=== PATIENT | female | born 1950 | race African-American/Black ===

== ENCOUNTER 2016-06-06 22:59 | Inpatient (IN) | payer MEDICARE, MEDICAID ==
[~2016-06-06] VITALS: Ht 172.7 cm; Wt 76.2 kg
[2016-06-07 03:19] VITALS: BP 139/78
[2016-06-07] MEDS ORDERED: PNEUMOCOCCAL VACCINE POLYVALENT 0.5 ML VIAL [PPSV23] IM ONE (03:45)
[2016-06-07 06:37] LABS: GLUCOSE,POINT OF CARE 395 MG/DL (70-110)
[2016-06-07] MEDS ORDERED: INSULIN ASPART 100 UNITS/ML SQ PRN (07:00)
[2016-06-07] MEDS ORDERED: GLUCAGON,HUMAN RECOMBINANT 1 MG VIAL IM PRN (07:00)
[2016-06-07] MEDS: MetFORMIN HCL 500 MG TABLET PO SCH ×2 (07:10→16:17)
[2016-06-07] MEDS: INSULIN ASPART 100 UNITS/ML SQ PRN (07:19)
[2016-06-07 07:51] LABS: BASOPHILS % (AUTO) 0.4 % (0.0-2.0); EOSINOPHILS % (AUTO) 2.5 % (1.0-6.0); HEMOGLOBIN 9.7 g/dL (12.0-16.0); LYMPHOCYTES # (AUTO) 1.6 K/uL (1.0-4.8); MEAN CORPUSCULAR HEMOGLOBIN 27.7 pg (26.0-34.0); MEAN CORPUSCULAR HGB CONC 32.2 G/dL (31.0-37.0); MEAN CORPUSCULAR VOLUME 86 fL (80-100); MONOCYTES # (AUTO) 0.5 K/uL (0.1-1.0); MONOCYTES % (AUTO) 7.4 % (2.0-9.0); NEUTROPHILS # (AUTO) 4.3 K/uL (1.8-7.7); NEUTROPHILS % (AUTO) 65.7 % (40.0-70.0); PLATELET COUNT (AUTO) 264 K/uL (150-450); RED BLOOD CELL COUNT(AUTO) 3.49 MIL/uL (4.00-5.20); RED CELL DISTRIBUTION WIDTH 15.5 % (11.5-14.5); WHITE BLOOD COUNT (AUTO) 6.6 K/uL (4.5-11.0)
[2016-06-07 08:22] LABS: ALANINE AMINOTRANSFERASE 43 U/L (12-78); ALBUMIN 2.6 g/dL (3.4-5.0); ANION GAP 5 mmol/L (8-16); ASPARTATE AMINOTRANSFERASE 24 U/L (15-37); BILIRUBIN,TOTAL 0.2 mg/dL (0.1-1.0); CALCIUM, TOTAL 8.7 mg/dL (8.8-10.5); CARBON DIOXIDE 28 mmol/L (22-29); CHLORIDE 102 mmol/L (98-107); CREATININE 1.02 mg/dL (0.60-1.30); GLOMERULAR FILTR. RATE CALC > 60 mL/min (>60); SODIUM SERUM 135 mmol/L (136-145); THYROID STIMULATING HORMONE 2.75 uIU/mL (0.36-3.74); TOTAL PROTEIN, SERUM 6.2 g/dL (6.4-8.2); UREA NITROGEN, BLOOD 21 mg/dL (7-18)
[2016-06-07 08:23] VITALS: BP 120/73
[2016-06-07 08:25] LABS: HEMOGLOBIN A1C 9.9 % (4.5-6.2)
[2016-06-07] MEDS: LORazepam 2 MG TABLET PO PRN ×2 (08:39→14:22)
[2016-06-07] MEDS ORDERED: DiphenhydrAMINE HCL 50 MG/ML VIAL ONE (08:56)
[2016-06-07] MEDS ORDERED: HALOPERIDOL LACTATE 5 MG/ML VIAL ONE (08:56)
[2016-06-07] MEDS ORDERED: LORazepam 2 MG/ML VIAL ONE (08:56)
[2016-06-07] MEDS ORDERED: DiphenhydrAMINE HCL 50 MG/ML VIAL IM ONE (09:00)
[2016-06-07] MEDS ORDERED: LORazepam 2 MG/ML VIAL IM ONE (09:00)
[2016-06-07] MEDS ORDERED: HALOPERIDOL LACTATE 5 MG/ML VIAL IM ONE (09:00)
[2016-06-07 16:00] VITALS: BP 121/84
[2016-06-07] MEDS: DIVALPROEX SODIUM 500 MG DR TABLET PO SCH (16:16)
[2016-06-07] MEDS: RisperiDONE 1 MG TABLET PO SCH (16:17)
[2016-06-08] MEDS: MetFORMIN HCL 500 MG TABLET PO SCH ×2 (06:48→16:37)
[2016-06-08 06:55] LABS: GLUCOSE,POINT OF CARE 265 MG/DL (70-110)
[2016-06-08] MEDS: INSULIN ASPART 100 UNITS/ML SQ PRN ×2 (07:01→11:50)
[2016-06-08 08:00] VITALS: BP 159/90
[2016-06-08] MEDS: RisperiDONE 1 MG TABLET PO SCH ×2 (08:12→16:37)
[2016-06-08] MEDS: HALOPERIDOL 5 MG TABLET PO PRN (08:12)
[2016-06-08] MEDS: DIVALPROEX SODIUM 500 MG DR TABLET PO SCH ×2 (08:12→16:37)
[2016-06-08] MEDS: LORazepam 2 MG TABLET PO PRN ×2 (08:12→16:37)
[2016-06-08 10:07] LABS: GLUCOSE COMMENT 1 Received Meds; GLUCOSE,POINT OF CARE 214 MG/DL (70-110)
[2016-06-08 12:48] VITALS: BP 146/82
[2016-06-08] MEDS: AmLODIPine BESYLATE 5 MG TABLET PO SCH (13:53)
[2016-06-08 14:46] VITALS: BP 144/79
[2016-06-08 16:24] VITALS: BP 144/83
[2016-06-08] MEDS ORDERED: INSULIN ASPART 100 UNITS/ML SQ ONE (16:45)
[2016-06-08 16:57] LABS: GLUCOSE COMMENT 1 Received Meds; GLUCOSE,POINT OF CARE 404 MG/DL (70-110)
[2016-06-08 20:52] LABS: GLUCOSE,POINT OF CARE 136 MG/DL (70-110)
[2016-06-08] MEDS: INSULIN DETEMIR 100 UNITS/ML SQ SCH (21:18)
[2016-06-09] MEDS ORDERED: DiphenhydrAMINE HCL 50 MG/ML VIAL ONE (00:49)
[2016-06-09] MEDS ORDERED: HALOPERIDOL LACTATE 5 MG/ML VIAL ONE (00:49)
[2016-06-09] MEDS ORDERED: LORazepam 2 MG/ML VIAL ONE (00:49)
[2016-06-09] MEDS ORDERED: HALOPERIDOL LACTATE 5 MG/ML VIAL IM ONE (01:00)
[2016-06-09] MEDS ORDERED: DiphenhydrAMINE HCL 50 MG/ML VIAL IM ONE (01:00)
[2016-06-09] MEDS ORDERED: LORazepam 2 MG/ML VIAL IM ONE (01:00)
[2016-06-09 06:30] VITALS: BP 137/88
[2016-06-09] MEDS: MetFORMIN HCL 500 MG TABLET PO SCH ×2 (06:37→16:46)
[2016-06-09] MEDS: INSULIN ASPART 100 UNITS/ML SQ PRN ×4 (06:38→20:51)
[2016-06-09 08:14] VITALS: BP 137/70
[2016-06-09] MEDS: LORazepam 2 MG TABLET PO PRN ×2 (09:18→16:46)
[2016-06-09] MEDS: RisperiDONE 1 MG TABLET PO SCH ×2 (09:18→16:46)
[2016-06-09] MEDS: AmLODIPine BESYLATE 5 MG TABLET PO SCH (09:18)
[2016-06-09] MEDS: HALOPERIDOL 5 MG TABLET PO PRN (09:18)
[2016-06-09] MEDS: DIVALPROEX SODIUM 500 MG DR TABLET PO SCH ×2 (09:18→16:46)
[2016-06-09 12:12] LABS: GLUCOSE,POINT OF CARE 366 MG/DL (70-110)
[2016-06-09 12:12] LABS: GLUCOSE COMMENT 1 Received Meds; GLUCOSE,POINT OF CARE 309 MG/DL (70-110)
[2016-06-09] MEDS: LOPERAMIDE HCL 2 MG CAPSULE PO PRN (14:57)
[2016-06-09 16:01] VITALS: BP 140/78
[2016-06-09 17:03] LABS: GLUCOSE,POINT OF CARE 178 MG/DL (70-110)
[2016-06-09] MEDS: INSULIN DETEMIR 100 UNITS/ML SQ SCH (20:50)
[2016-06-10] MEDS: MetFORMIN HCL 500 MG TABLET PO SCH ×2 (06:34→17:09)
[2016-06-10] MEDS: INSULIN ASPART 100 UNITS/ML SQ PRN ×4 (06:36→21:31)
[2016-06-10] MEDS: LOPERAMIDE HCL 2 MG CAPSULE PO PRN (06:40)
[2016-06-10 07:38] LABS: GLUCOSE,POINT OF CARE 262 MG/DL (70-110)
[2016-06-10 07:38] LABS: GLUCOSE COMMENT 1 Received Meds; GLUCOSE,POINT OF CARE 215 MG/DL (70-110)
[2016-06-10] MEDS: RisperiDONE 1 MG TABLET PO SCH ×2 (08:48→17:09)
[2016-06-10] MEDS: AmLODIPine BESYLATE 5 MG TABLET PO SCH (08:48)
[2016-06-10] MEDS: DIVALPROEX SODIUM 500 MG DR TABLET PO SCH ×2 (08:49→17:08)
[2016-06-10] MEDS: LORazepam 2 MG TABLET PO PRN ×3 (08:55→18:43)
[2016-06-10] MEDS: LACTOBACILLUS ACIDOPHILUS/BULGARICUS GRANULES PACKET PO SCH ×2 (12:46→17:08)
[2016-06-10 16:22] VITALS: BP 120/74
[2016-06-10 19:39] LABS: GLUCOSE,POINT OF CARE 322 MG/DL (70-110)
[2016-06-10 19:39] LABS: GLUCOSE,POINT OF CARE 330 MG/DL (70-110)
[2016-06-10 20:27] LABS: GLUCOSE,POINT OF CARE 193 MG/DL (70-110)
[2016-06-10] MEDS: INSULIN DETEMIR 100 UNITS/ML SQ SCH (21:30)
[2016-06-10] MEDS: ZOLPIDEM TARTRATE 10 MG TABLET PO PRN (22:10)
[2016-06-11] MEDS: MetFORMIN HCL 500 MG TABLET PO SCH ×2 (06:43→16:13)
[2016-06-11] MEDS: INSULIN ASPART 100 UNITS/ML SQ PRN ×4 (06:44→20:40)
[2016-06-11 07:04] LABS: GLUCOSE,POINT OF CARE 145 MG/DL (70-110)
[2016-06-11 07:12] VITALS: BP 123/79
[2016-06-11 08:30] VITALS: BP 121/68
[2016-06-11] MEDS: DIVALPROEX SODIUM 500 MG DR TABLET PO SCH ×2 (09:37→16:13)
[2016-06-11] MEDS: LORazepam 2 MG TABLET PO PRN ×2 (09:37→16:14)
[2016-06-11] MEDS: AmLODIPine BESYLATE 5 MG TABLET PO SCH (09:37)
[2016-06-11] MEDS: RisperiDONE 1 MG TABLET PO SCH ×2 (09:37→16:13)
[2016-06-11] MEDS: LACTOBACILLUS ACIDOPHILUS/BULGARICUS GRANULES PACKET PO SCH ×2 (09:38→16:14)
[2016-06-11] MEDS: HALOPERIDOL 5 MG TABLET PO PRN (12:43)
[2016-06-11 13:53] LABS: GLUCOSE COMMENT 1 Doctor Notified; GLUCOSE,POINT OF CARE 368 MG/DL (70-110)
[2016-06-11 16:26] VITALS: BP 135/69
[2016-06-11 16:52] LABS: GLUCOSE,POINT OF CARE 347 MG/DL (70-110)
[2016-06-11 20:37] LABS: GLUCOSE,POINT OF CARE 316 MG/DL (70-110)
[2016-06-11] MEDS: INSULIN DETEMIR 100 UNITS/ML SQ SCH (20:39)
[2016-06-11] MEDS: ZOLPIDEM TARTRATE 10 MG TABLET PO PRN (20:48)
[2016-06-12 04:16] VITALS: BP 139/87
[2016-06-12 05:37] LABS: GLUCOSE,POINT OF CARE 165 MG/DL (70-110)
[2016-06-12] MEDS: MetFORMIN HCL 500 MG TABLET PO SCH ×2 (06:26→16:33)
[2016-06-12] MEDS: INSULIN ASPART 100 UNITS/ML SQ PRN ×4 (06:47→20:36)
[2016-06-12 08:03] VITALS: BP 133/74
[2016-06-12 09:25] LABS: APPEARANCE,URINE CLOUDY (CLEAR); GLUCOSE, URINE (UA) NEGATIVE (NEGATIVE); KETONES,URINE TRACE mg/dL (NEGATIVE); LEUKOCYTE ESTERASE ,URINE SMALL (NEGATIVE); OCCULT BLOOD,URINE NEGATIVE (NEGATIVE); PH,URINE 5.5 (5.0-8.0); PROTEIN,URINE SEE CONFIRM (NEGATIVE)
[2016-06-12 09:26] LABS: ADD UA MICROSCOPIC YES
[2016-06-12 09:35] LABS: SULFOSALICYLIC ACID,URINE 3+ (Negative)
[2016-06-12 09:41] LABS: RBC,URINE 0-2 /HPF (0-2); SQUAMOUS EPITHELIAL CELL,UR Few /LPF (None Seen)
[2016-06-12] MEDS: LACTOBACILLUS ACIDOPHILUS/BULGARICUS GRANULES PACKET PO SCH ×2 (09:43→16:34)
[2016-06-12] MEDS: DIVALPROEX SODIUM 500 MG DR TABLET PO SCH ×2 (09:43→16:33)
[2016-06-12] MEDS: AmLODIPine BESYLATE 5 MG TABLET PO SCH (09:43)
[2016-06-12] MEDS: LORazepam 2 MG TABLET PO PRN ×2 (09:43→16:33)
[2016-06-12] MEDS: RisperiDONE 1 MG TABLET PO SCH ×2 (09:43→16:33)
[2016-06-12] MEDS: HALOPERIDOL 5 MG TABLET PO PRN (11:04)
[2016-06-12 11:21] LABS: GLUCOSE,POINT OF CARE 313 MG/DL (70-110)
[2016-06-12 16:08] VITALS: BP 125/82
[2016-06-12 16:46] LABS: GLUCOSE,POINT OF CARE 239 MG/DL (70-110)
[2016-06-12] MEDS: INSULIN DETEMIR 100 UNITS/ML SQ SCH (20:35)
[2016-06-12 20:37] LABS: GLUCOSE,POINT OF CARE 274 MG/DL (70-110)
[2016-06-12] MEDS: ZOLPIDEM TARTRATE 10 MG TABLET PO PRN (21:05)
[2016-06-13 06:37] LABS: GLUCOSE,POINT OF CARE 239 MG/DL (70-110)
[2016-06-13] MEDS: MetFORMIN HCL 500 MG TABLET PO SCH ×2 (06:50→16:36)
[2016-06-13] MEDS: INSULIN ASPART 100 UNITS/ML SQ PRN ×4 (06:57→20:38)
[2016-06-13] MEDS: RisperiDONE 1 MG TABLET PO SCH ×2 (08:12→16:29)
[2016-06-13] MEDS: DIVALPROEX SODIUM 500 MG DR TABLET PO SCH ×2 (08:12→16:29)
[2016-06-13] MEDS: AmLODIPine BESYLATE 5 MG TABLET PO SCH (08:13)
[2016-06-13] MEDS: LACTOBACILLUS ACIDOPHILUS/BULGARICUS GRANULES PACKET PO SCH ×2 (08:13→16:36)
[2016-06-13] MEDS: LORazepam 2 MG TABLET PO PRN (08:14)
[2016-06-13 08:27] VITALS: BP 151/84
[2016-06-13 12:33] LABS: GLUCOSE,POINT OF CARE 347 MG/DL (70-110)
[2016-06-13 16:00] VITALS: BP 106/76
[2016-06-13 17:02] LABS: GLUCOSE,POINT OF CARE 240 MG/DL (70-110)
[2016-06-13] MEDS: INSULIN DETEMIR 100 UNITS/ML SQ SCH (20:37)
[2016-06-13 21:12] LABS: GLUCOSE,POINT OF CARE 268 MG/DL (70-110)
[2016-06-14 06:13] LABS: GLUCOSE,POINT OF CARE 231 MG/DL (70-110)
[2016-06-14] MEDS: MetFORMIN HCL 500 MG TABLET PO SCH ×2 (06:20→16:41)
[2016-06-14] MEDS: INSULIN ASPART 100 UNITS/ML SQ PRN ×3 (06:32→20:50)
[2016-06-14 07:17] VITALS: BP 110/78
[2016-06-14] MEDS: HALOPERIDOL 5 MG TABLET PO PRN ×2 (08:03→14:40)
[2016-06-14] MEDS: RisperiDONE 1 MG TABLET PO SCH ×2 (08:03→16:41)
[2016-06-14] MEDS: DIVALPROEX SODIUM 500 MG DR TABLET PO SCH ×2 (08:03→16:41)
[2016-06-14] MEDS: LACTOBACILLUS ACIDOPHILUS/BULGARICUS GRANULES PACKET PO SCH ×2 (08:03→16:40)
[2016-06-14] MEDS: AmLODIPine BESYLATE 5 MG TABLET PO SCH (08:03)
[2016-06-14 08:47] VITALS: BP 144/116
[2016-06-14 11:17] LABS: GLUCOSE,POINT OF CARE 125 MG/DL (70-110)
[2016-06-14] MEDS: LORazepam 2 MG TABLET PO PRN (11:22)
[2016-06-14 16:02] VITALS: BP 145/80
[2016-06-14 17:12] LABS: GLUCOSE,POINT OF CARE 251 MG/DL (70-110)
[2016-06-14 20:06] LABS: GLUCOSE,POINT OF CARE 288 MG/DL (70-110)
[2016-06-14] MEDS: INSULIN DETEMIR 100 UNITS/ML SQ SCH (20:49)
[2016-06-15 01:44] VITALS: BP 138/79
[2016-06-15 06:42] LABS: GLUCOSE,POINT OF CARE 215 MG/DL (70-110)
[2016-06-15] MEDS: MetFORMIN HCL 500 MG TABLET PO SCH ×2 (06:47→17:06)
[2016-06-15] MEDS: INSULIN ASPART 100 UNITS/ML SQ PRN ×3 (06:54→16:58)
[2016-06-15 08:12] VITALS: BP 147/83
[2016-06-15] MEDS: AmLODIPine BESYLATE 5 MG TABLET PO SCH (08:48)
[2016-06-15] MEDS: DIVALPROEX SODIUM 500 MG DR TABLET PO SCH ×2 (08:48→17:06)
[2016-06-15] MEDS: RisperiDONE 1 MG TABLET PO SCH ×2 (08:48→17:06)
[2016-06-15] MEDS: HALOPERIDOL 5 MG TABLET PO PRN (08:49)
[2016-06-15] MEDS: LACTOBACILLUS ACIDOPHILUS/BULGARICUS GRANULES PACKET PO SCH ×2 (08:49→17:07)
[2016-06-15 11:47] LABS: GLUCOSE COMMENT 1 Received Meds; GLUCOSE,POINT OF CARE 150 MG/DL (70-110)
[2016-06-15 16:28] VITALS: BP 129/77
[2016-06-15 16:37] LABS: GLUCOSE,POINT OF CARE 318 MG/DL (70-110)
[2016-06-15 20:27] LABS: GLUCOSE,POINT OF CARE 127 MG/DL (70-110)
[2016-06-15] MEDS: INSULIN DETEMIR 100 UNITS/ML SQ SCH (20:56)
[2016-06-16 00:05] VITALS: BP 132/87
[2016-06-16] MEDS: HALOPERIDOL 5 MG TABLET PO PRN ×2 (00:20→08:26)
[2016-06-16] MEDS: LORazepam 2 MG TABLET PO PRN (00:20)
[2016-06-16] MEDS: ZOLPIDEM TARTRATE 10 MG TABLET PO PRN (00:20)
[2016-06-16] MEDS: MetFORMIN HCL 500 MG TABLET PO SCH ×2 (06:26→16:39)
[2016-06-16 07:02] LABS: GLUCOSE,POINT OF CARE 91 MG/DL (70-110)
[2016-06-16 08:13] VITALS: BP 111/64
[2016-06-16] MEDS: RisperiDONE 2 MG TABLET PO SCH ×2 (08:26→16:39)
[2016-06-16] MEDS: AmLODIPine BESYLATE 5 MG TABLET PO SCH (08:26)
[2016-06-16] MEDS: DIVALPROEX SODIUM 500 MG DR TABLET PO SCH ×3 (08:26→16:39)
[2016-06-16] MEDS: LITHIUM CARBONATE 300 MG CAPSULE PO SCH ×2 (08:26→16:39)
[2016-06-16] MEDS: LACTOBACILLUS ACIDOPHILUS/BULGARICUS GRANULES PACKET PO SCH ×2 (08:27→16:39)
[2016-06-16 11:37] LABS: GLUCOSE,POINT OF CARE 258 MG/DL (70-110)
[2016-06-16] MEDS: INSULIN ASPART 100 UNITS/ML SQ PRN ×2 (11:38→16:53)
[2016-06-16 16:01] VITALS: BP 132/75
[2016-06-16 17:38] LABS: GLUCOSE,POINT OF CARE 296 MG/DL (70-110)
[2016-06-16] MEDS: INSULIN DETEMIR 100 UNITS/ML SQ SCH (21:05)
[2016-06-16 21:27] LABS: GLUCOSE,POINT OF CARE 189 MG/DL (70-110)
[2016-06-17 00:59] VITALS: BP 125/68
[2016-06-17] MEDS: LORazepam 2 MG TABLET PO PRN (01:53)
[2016-06-17] MEDS: ACETAMINOPHEN 325 MG TABLET PO PRN (01:53)
[2016-06-17 01:55] VITALS: BP 149/88
[2016-06-17 06:17] LABS: GLUCOSE,POINT OF CARE 205 MG/DL (70-110)
[2016-06-17] MEDS: INSULIN ASPART 100 UNITS/ML SQ PRN ×4 (06:46→20:55)
[2016-06-17] MEDS: MetFORMIN HCL 500 MG TABLET PO SCH ×2 (06:47→17:12)
[2016-06-17 08:07] VITALS: BP 142/83
[2016-06-17] MEDS: DIVALPROEX SODIUM 500 MG DR TABLET PO SCH ×3 (09:06→17:12)
[2016-06-17] MEDS: LITHIUM CARBONATE 300 MG CAPSULE PO SCH ×2 (09:06→17:12)
[2016-06-17] MEDS: HALOPERIDOL 5 MG TABLET PO PRN ×3 (09:06→17:56)
[2016-06-17] MEDS: RisperiDONE 2 MG TABLET PO SCH ×2 (09:06→17:12)
[2016-06-17] MEDS: AmLODIPine BESYLATE 5 MG TABLET PO SCH (09:06)
[2016-06-17 12:02] LABS: GLUCOSE,POINT OF CARE 188 MG/DL (70-110)
[2016-06-17 16:07] VITALS: BP 128/67
[2016-06-17 19:17] LABS: GLUCOSE,POINT OF CARE 160 MG/DL (70-110)
[2016-06-17] MEDS: INSULIN DETEMIR 100 UNITS/ML SQ SCH (20:56)
[2016-06-17] MEDS: ZOLPIDEM TARTRATE 10 MG TABLET PO PRN (20:59)
[2016-06-17 21:17] LABS: GLUCOSE,POINT OF CARE 370 MG/DL (70-110)
[2016-06-18 05:59] VITALS: BP 138/88
[2016-06-18 06:07] LABS: GLUCOSE,POINT OF CARE 110 MG/DL (70-110)
[2016-06-18] MEDS: MetFORMIN HCL 500 MG TABLET PO SCH ×2 (06:24→16:29)
[2016-06-18 08:00] VITALS: BP 131/75
[2016-06-18] MEDS: LITHIUM CARBONATE 300 MG CAPSULE PO SCH ×2 (08:36→16:29)
[2016-06-18] MEDS: AmLODIPine BESYLATE 5 MG TABLET PO SCH (08:36)
[2016-06-18] MEDS: DIVALPROEX SODIUM 500 MG DR TABLET PO SCH ×3 (08:36→16:29)
[2016-06-18] MEDS: RisperiDONE 2 MG TABLET PO SCH ×2 (08:36→16:29)
[2016-06-18] MEDS: HALOPERIDOL 5 MG TABLET PO PRN ×2 (08:40→13:02)
[2016-06-18 11:22] LABS: GLUCOSE COMMENT 1 Received Meds; GLUCOSE,POINT OF CARE 189 MG/DL (70-110)
[2016-06-18 16:00] VITALS: BP 144/83
[2016-06-18 16:48] LABS: GLUCOSE,POINT OF CARE 366 MG/DL (70-110)
[2016-06-18] MEDS: INSULIN ASPART 100 UNITS/ML SQ PRN ×2 (17:26→20:57)
[2016-06-18 20:43] LABS: GLUCOSE,POINT OF CARE 178 MG/DL (70-110)
[2016-06-18] MEDS: INSULIN DETEMIR 100 UNITS/ML SQ SCH (20:56)
[2016-06-19 06:07] LABS: GLUCOSE,POINT OF CARE 122 MG/DL (70-110)
[2016-06-19] MEDS: MetFORMIN HCL 500 MG TABLET PO SCH ×2 (06:30→16:56)
[2016-06-19 07:10] VITALS: BP 127/84
[2016-06-19 08:08] VITALS: BP 133/81
[2016-06-19] MEDS: RisperiDONE 2 MG TABLET PO SCH ×2 (08:18→16:57)
[2016-06-19] MEDS: AmLODIPine BESYLATE 5 MG TABLET PO SCH (08:18)
[2016-06-19] MEDS: LITHIUM CARBONATE 300 MG CAPSULE PO SCH ×2 (08:18→16:57)
[2016-06-19] MEDS: DIVALPROEX SODIUM 500 MG DR TABLET PO SCH ×3 (08:19→16:57)
[2016-06-19] MEDS: LORazepam 2 MG TABLET PO PRN (08:31)
[2016-06-19 11:02] LABS: GLUCOSE,POINT OF CARE 291 MG/DL (70-110)
[2016-06-19] MEDS: INSULIN ASPART 100 UNITS/ML SQ PRN ×3 (11:46→21:08)
[2016-06-19 16:00] VITALS: BP 125/64
[2016-06-19 17:12] LABS: GLUCOSE COMMENT 1 Received Meds; GLUCOSE,POINT OF CARE 175 MG/DL (70-110)
[2016-06-19] MEDS: INSULIN DETEMIR 100 UNITS/ML SQ SCH (21:02)
[2016-06-19 21:03] LABS: GLUCOSE COMMENT 1 Received Meds; GLUCOSE,POINT OF CARE 257 MG/DL (70-110)
[2016-06-19] MEDS: HALOPERIDOL 5 MG TABLET PO PRN (23:06)
[2016-06-20 06:15] VITALS: BP 131/75
[2016-06-20 06:32] LABS: GLUCOSE,POINT OF CARE 109 MG/DL (70-110)
[2016-06-20] MEDS: MetFORMIN HCL 500 MG TABLET PO SCH ×2 (06:38→16:13)
[2016-06-20] MEDS: DIVALPROEX SODIUM 500 MG DR TABLET PO SCH ×3 (08:20→16:13)
[2016-06-20] MEDS: LITHIUM CARBONATE 300 MG CAPSULE PO SCH ×2 (08:20→16:13)
[2016-06-20] MEDS: RisperiDONE 2 MG TABLET PO SCH ×2 (08:20→16:13)
[2016-06-20] MEDS: AmLODIPine BESYLATE 5 MG TABLET PO SCH (08:20)
[2016-06-20 09:13] VITALS: BP 133/82
[2016-06-20] MEDS: INSULIN ASPART 100 UNITS/ML SQ PRN ×3 (11:43→21:09)
[2016-06-20 11:57] LABS: GLUCOSE,POINT OF CARE 196 MG/DL (70-110)
[2016-06-20 16:04] VITALS: BP 146/47
[2016-06-20 16:27] LABS: GLUCOSE COMMENT 1 Received Meds; GLUCOSE,POINT OF CARE 336 MG/DL (70-110)
[2016-06-20] MEDS: ACETAMINOPHEN 325 MG TABLET PO PRN (17:41)
[2016-06-20 20:23] LABS: GLUCOSE COMMENT 1 Received Meds; GLUCOSE,POINT OF CARE 251 MG/DL (70-110)
[2016-06-20] MEDS: INSULIN DETEMIR 100 UNITS/ML SQ SCH (21:10)
[2016-06-21 01:28] VITALS: BP 124/71
[2016-06-21] MEDS: INSULIN ASPART 100 UNITS/ML SQ PRN ×3 (06:28→20:29)
[2016-06-21] MEDS: LORazepam 2 MG TABLET PO PRN (06:31)
[2016-06-21 06:42] LABS: GLUCOSE,POINT OF CARE 148 MG/DL (70-110)
[2016-06-21] MEDS: MetFORMIN HCL 500 MG TABLET PO SCH ×2 (07:05→16:35)
[2016-06-21 08:44] VITALS: BP 150/72
[2016-06-21] MEDS: AmLODIPine BESYLATE 5 MG TABLET PO SCH (08:44)
[2016-06-21] MEDS: RisperiDONE 2 MG TABLET PO SCH ×2 (08:44→16:35)
[2016-06-21] MEDS: DIVALPROEX SODIUM 500 MG DR TABLET PO SCH ×3 (08:44→16:35)
[2016-06-21] MEDS: LITHIUM CARBONATE 300 MG CAPSULE PO SCH ×2 (08:44→16:35)
[2016-06-21 11:47] LABS: GLUCOSE,POINT OF CARE 88 MG/DL (70-110)
[2016-06-21 16:00] VITALS: BP 149/78
[2016-06-21 16:52] LABS: GLUCOSE,POINT OF CARE 154 MG/DL (70-110)
[2016-06-21] MEDS: INSULIN DETEMIR 100 UNITS/ML SQ SCH (20:28)
[2016-06-21 20:32] LABS: GLUCOSE,POINT OF CARE 176 MG/DL (70-110)
[2016-06-22 06:25] VITALS: BP 142/67
[2016-06-22 06:32] LABS: GLUCOSE,POINT OF CARE 92 MG/DL (70-110)
[2016-06-22] MEDS: MetFORMIN HCL 500 MG TABLET PO SCH (06:33)
[2016-06-22] MEDS: AmLODIPine BESYLATE 5 MG TABLET PO SCH (08:45)
[2016-06-22] MEDS: LITHIUM CARBONATE 300 MG CAPSULE PO SCH (08:45)
[2016-06-22] MEDS: LORazepam 2 MG TABLET PO PRN (08:45)
[2016-06-22] MEDS: RisperiDONE 2 MG TABLET PO SCH (08:45)
[2016-06-22] MEDS: DIVALPROEX SODIUM 500 MG DR TABLET PO SCH ×2 (08:45→12:33)
[2016-06-22 09:05] VITALS: BP 134/71
[2016-06-22] MEDS ORDERED: METF500T4 PO (09:17)
[2016-06-22] MEDS ORDERED: RISP2 PO (09:17)
[2016-06-22] MEDS ORDERED: LITH300C3 PO (09:17)
[2016-06-22] MEDS ORDERED: INSU100V12 SQ (09:17)
[2016-06-22] MEDS ORDERED: AMLO2.5T PO (09:17)
[2016-06-22] MEDS ORDERED: DIVA500T35 PO (09:17)
[2016-06-22 11:52] LABS: GLUCOSE,POINT OF CARE 109 MG/DL (70-110)
== END 2016-06-22 13:41 | disposition home or self-care (01) | DRG 750 ==
LOC: B3A 06-07 01:42 → EDBD 06-07 01:42 → B3A 06-08 02:43
PROVIDERS: ADMIT Psychiatry & Neurology Psychiatry; ATTEND Psychiatry & Neurology Psychiatry
DX: F20.0 Paranoid schizophrenia (principal); E87.1 Hypo-osmolality and hyponatremia; E11.9 Type 2 diabetes mellitus without complications; I10 Essential (primary) hypertension; D64.9 Anemia, unspecified; Z88.0 Allergy status to penicillin
CPT/HCPCS: 82962; 83036; 84439; 84443; 87081; 87086; J1200; J1630; J1815; J2060